=== PATIENT | male | born 1945 | race Caucasian/White ===

== ENCOUNTER → 2016-07-23 | Outpatient (CLI) | payer OTHER ==
--- NOTE | 2016-07-24 06:23 | SPLIT NIGHT TECHNICIAN REPORT ---
[facility] Split Night Polysomnogram - Viscose Cellar Charge Hand Report Study date: 07/23/2016 Referring Physician: Flori Mcnamara PA-C Name: COTY HERMAN Viscose Cellar Charge Hand: Rachna Sullivan [facility]. Date of : 1945 Height: 70 years, Height 5' 7" Sex: Male Weight: 218 lbs Age: 70 Neck Circum: 18.5 in BMI: Medications: 34.14 ANTI-OXIDANT, ASPIRIN 81 MG, ATORVASTATIN 80 MG, ATROVENT, DULERA, FENOFIBRATE 54 MG, GLUCOSAMINE CHONDROITIN, LISINOPRIL-HYDROCHLOROTHIAZIDE 20-12.5 MG, MECLIZINE 25 MG, MONTELUKAST 10 MG, NITROGLYCERIN 0.4 MG, OMEGA 3 FISH OIL, SPIRIVA HANDIHALER 18 MCG, TRAMADOL 50 MG, VENTOLIN HFA Patient History 70 yr-old male here for a baseline study. He has had previous sleep testing. He was found to be positive for [place] but could not tolerate the mask and pressure. He is back with worsening daytime sleepiness and unrefreshing sleep. His [place] scale is 8. The test was started on room air. ETCO2 testing was not utilized during this study. Room 3 Parameters Monitored NPSG: E1-M2, E2-M1, Fp1-M2, Fp2-M1, F3-M2, F4-M2, F4-M1, C3-M2, C4-M2, C4-M1, O1-M2, O2-M2, O2-M1, T3-M2, T4-M1, P3-M2, P4-M1, CHIN1, CHIN2, HR, EKG, Legs, PFLOW, SNOR, FLOW, CFLOW, Tidal Volume, THOR, ABDO, SpO2, PLTH, CPRESS, ETCO2 Wave, ETCO2, pH SLEEP SUMMARY DATA DIAGNOSTIC TREATMENT Lights Out: 10:45:32 PM 1:46:02 AM Lights On: 1:29:32 AM 5:33:02 AM Total Recording Time (TRT): 164.0 min. 227.0 min. Total Sleep Time (TST): 129.5 min. 215.5 min. NREM Time: 129.5 min. 152.0 min. REM Time: 0.0 min. 63.5 min. Sleep Period Time (SPT): 155.0 min. 221.5 min. Sleep Efficiency (SE): 79 % 95 % Sleep Latency: 9.0 min. 5.0 min. Arousal Index: 76.9 13.6 PAP Treatment Levels: 4, 6, 8, 10, 11 * Optimal Pressure(s) SLEEP STAGING DATA DIAGNOSTIC TREATMENT Duration (min) TST % Duration (min) TST % Stage Wake: 34.5 min. -- 11.5 min. -- WASO: 25.5 min. -- 6.0 min. -- NREM: 129.5 min. 100 % 152.0 min. 71 % Stage N1: 97.0 min. 75 % 37.5 min. 17 % Stage N2: 32.5 min. 25 % 114.5 min. 53 % Stage N3: 0.0 min. 0 % 0.0 min. 0 % REM: 0.0 min. 0 % 63.5 min. 29 % POSITIONAL DATA Event Count Index Event Count Index Supine: 0 0.0 5 3.5 Supine NREM: 0 0.0 5 4.9 Supine REM: N/A N/A 0 0 Non-Supine: 176 81.9 36 11.9 Non-Supine NREM: 176 81.9 29 15.1 Non-Supine REM: N/A N/A 7 4.2 AROUSAL SUMMARY DATA: Event Count Index Event Count Index Apnea Arousals: 153 81.1 10 7.0 Hypopnea Arousals: 1 0.5 1 0.3 Snore Arousals: 3 1.4 5 1.4 PLM Arousals: 0 0.0 8 2.2 Non-Specific Arousals: 6 2.8 16 4.5 Total Arousals: 166 76.9 49 13.6 MYOCLONUS (PLM) Event Count Index Event Count Index PLM: 6 2.8 370 103.0 PLM AROUSAL: 0 0.0 8 2.2 PLM W/O AROUSAL 6 2.8 362 100.8 PLM W/RESP EVENT 1 0.0 5 0.0 MYOCLONUS (PLM) Event Count Index Event Count Index LM: 1 18.5 32 8.9 LM AROUSAL: 1 0.5 1 0.3 LM W/O AROUSAL LM W/RESP EVENT LM NON SPECIFIC 21 9.7 384 106.9 HEART RATE DATA DIAGNOSTIC TREATMENT Sleep (bpm): 61 57 REM (bpm): N/A 92 NREM (bpm): 89 92 Tachycardia Count: 0 0 Tachycardia Duration: 0.00 0 Bradycardia Count: 0 0 Bradycardia Duration: 0.00 0 DIAGNOSTIC PORTION TREATMENT PORTION RESPIRATORY DATA Event Count Index Event Count Index AHI: -- 81.5 -- 9.2 RDI: -- 81.5 -- 11 Obstructive Apnea: 175 81.1 22 6.1 Central Apnea: 0 0.0 3 0.8 Mixed Apnea: 0 0.0 0 0.0 Hypopnea: 1 0.5 8 2.2 RERA: 0 0.0 8 2.2 Total Apneas: 175 81.1 25 7.0 RESPIRATORY DATA REM NREM SLEEP REM NREM SLEEP Supine Position: Obstructive Apneas: N/A 0 0 0 0 0 Central Apneas: N/A 0 0 0 3 3 Mixed Apneas: N/A 0 0 0 0 0 Hypopneas: N/A 0 0 0 1 1 RERA N/A 0 0 0 1 1 Total Supine Events: N/A 0 0 0 5 5 Supine AHI: N/A 0.0 0.0 0 4.9 3.5 Supine RDI: N/A 0.0 0.0 0.0 6.1 4.3 REM NREM SLEEP REM NREM SLEEP Non-Supine Position: Obstructive Apneas: N/A 175 175 1 21 22 Central Apneas: N/A 0 0 0 0 0 Mixed Apneas: N/A 0 0 0 0 0 Hypopneas: N/A 1 1 2 5 7 RERA N/A 0 0 4 3 7 Total Supine Events: N/A 176 176 7 29 36 Supine AHI: N/A 81.9 81.9 4.2 15.1 11.9 Supine RDI: N/A 81.9 81.9 9.8 16.9 14.8 OXYGEN DESTAURATION DATA: Event Count Index Event Count Index REM Desaturations: N/A N/A 2 1.9 NREM Desaturations: 174 80.6 22 8.7 SNORE DATA DIAGNOSTIC TREATMENT Snore Time: 12.0 1:51:02 AM Snore TST%: 6 22 Snore Arousal Count: 3 5 Snore Arousal Index: 1.4 1.4 Desaturation Event Summary: Minimum %SpO2 Event Count Mean/Min/Max Duration(sec.) Desaturation Index % Time In Bed > 90 209 27.8 / 10.0 / 60.0 47.9 68.3 86 - 90 54 24.4 / 10.0 / 32.5 32.6 25.9 81 - 85 0 N/A 0.0 5.7 76 - 80 0 N/A 0.0 0.1 71 - 75 0 N/A 0.0 0.0 66 - 70 0 N/A 0.0 0.0 61 - 65 0 N/A 0.0 0.0 56 - 60 0 N/A 0.0 0.0 51 - 55 0 N/A 0.0 0.0 < 50 0 N/A 0.0 0.0 OXYGEN SATURATION DATA DIAGNOSTIC TREATMENT SpO2 Mean Sleep: 89 % 92 % SpO2 Mean REM: N/A % 92 % SpO2 Mean NREM: 89 % 92 % SpO2 Minimum Sleep: 80 % 86 % SpO2 Minimum REM: N/A % 86 % SpO2 Minimum NREM: 80 % 86 % Time Below 90% (TST): 67.6 11.1 Time Below 88% (TST): 41.1 1.0 Total REM NREM Awake <50% 0.0 min. 0.0 min. 0.0 min. 0.0 min. 51 - 60% 0.0 min. 0.0 min. 0.0 min. 0.0 min. 61 - 70% 0.0 min. 0.0 min. 0.0 min. 0.0 min. 71 - 80% 0.2 min. 0.0 min. 0.2 min. 0.0 min. 81 - 90% 121.1 min. 16.2 min. 92.9 min. 12.1 min. 91 - 100% 261.7 min. 47.2 min. 187.9 min. 26.5 min. Average 91 92 91 91 Minimum SpO2 80 86 80 82 Desaturation Event Index 33.3 1.9 41.8 30.0 # Desat. Events below 89% 194 N/A 178 16 Time(%) with Saturation below 89% 15.8 0.5 14.5 0.8 Time(min.) with Saturation below 89% 60.7 2.1 55.4 3.2 Recording Viscose Cellar Charge Hand Comments: Mr. Herman slept in the right, left, and supine positions. Cardiac arrhythmias were noted (please refer to the printouts). PLMs were noted. No bruxism noted. Snoring was noted and scored as a 3 on a scale of 1 through 5. (0=no snoring, 5=snoring loud enough to be heard through a closed door or down the srivastava way). At 1:44 am, he met specific Split-Night criteria during the diagnostic portion of this study. CPAP was initiated at +4 CMH2O and up-titrated to a level of +11 CMH2O, Cflex 3. An AirFit F10 full face mask size medium from [employer] was used during titration. He awoke to use the restroom two times during the night. Mr. Herman stated that he is unsure of how he slept. The final report will be interpreted and signed by a sleep physician. The completed physician report will then be placed in the patient medical record. Therapy Event: Therapy (cm H20) 0 4 6 8 10 11 Total Time at Pressure (min.) 164.0 10.6 9.8 47.6 38.0 121.1 TST at Pressure (min.) 129.5 5.6 9.8 45.6 37.5 117.1 # Periods 1 1 1 1 1 1 Sleep Onset (min.) 9.0 5.0 0.0 0.0 0.0 0.0 REM Onset (min.) N/A N/A N/A 28.6 0.0 58.1 Sleep Efficiency % 79 52 100 95 98 96 Wakefulness (%) 21.0 47.2 0.0 4.2 1.3 3.3 Wakefulness (min.) 34.5 5.0 0.0 2.0 0.5 4.0 NREM 1 (%) 59.1 52.8 96.0 10.5 5.3 12.8 NREM 1 (min.) 97.0 5.6 9.4 5.0 2.0 15.5 NREM 2 (%) 19.8 0.0 4.0 50.7 23.5 67.0 NREM 2 (min.) 32.5 0.0 0.4 24.1 8.9 81.1 NREM 3 (%) 0.0 0.0 0.0 0.0 0.0 0.0 NREM 3 (min.) 0.0 0.0 0.0 0.0 0.0 0.0 REM (%) 0.0 0.0 0.0 34.6 69.9 16.9 REM (min.) 0.0 0.0 0.0 16.5 26.5 20.5 # Arousals 166 9 12 6 6 16 Arousal Index 76.9 96.7 73.4 7.9 9.6 8.2 # Snore 402 24 52 423 326 1,027 Snore Index 186.3 257.8 318.1 557.0 521.9 526.4 AHI 81.5 107.4 67.3 9.2 1.6 2.1 AHI Supine 0.0 N/A N/A N/A N/A 3.5 AHI Non-Supine 81.9 107.4 67.3 9.2 1.6 0.0 NREM AHI 81.5 107.4 67.3 10.3 0.0 2.5 REM AHI N/A N/A N/A 7.3 2.3 0.0 RDI 81.5 107.4 67.3 14.5 4.8 3.1 # Obstructive 175 10 9 2 1 0 # Central Ap 0 0 0 0 0 3 # Mixed 0 0 0 0 0 0 # Hypopneas 1 0 2 5 0 1 RERAS 0 0 0 4 2 2 Total Respiratory Events 176 10 11 11 3 6 Time Below SpO2 89.00% (min.) 53.7 0.4 1.1 1.6 0.7 0.0 Mean NREM SpO2 (%) 89 91 92 92 93 92 Mean REM SpO2 (%) N/A N/A N/A 91 91 92 Mean Sleep SpO2 (%) 89 91 92 92 92 92 Min NREM SpO2 (%) 80 87 86 88 92 89 Min REM SpO2 (%) N/A N/A N/A 86 86 91 Position Supine (min.) 0.5 0.0 0.0 0.0 0.0 69.5 Position Non-supine (min.) 129.0 5.6 9.8 45.6 37.5 47.6 LM Index Sleep 21.3 32.2 6.1 54.0 88.0 154.8 LM Index NREM 21.3 32.2 6.1 39.2 164.5 170.9 LM Index REM N/A N/A N/A 80.2 56.5 79.0 Mean Heart Rate (bpm) 61 57 56 59 59 56 Min Heart Rate (bpm) 52 54 49 38 53 49
--- NOTE | 2016-07-27 19:15 | POLYSOMNOGRAPH REPORT ---
REFERRING PHYSICIAN: Dr. Dani Bermudez. CLINICAL DATA: The patient is a 70-year-old male with a prior history of obstructive sleep apnea. He was tested elsewhere. He did not tolerate nasal CPAP. He has complaints of daytime sleepiness and unrefreshed sleep. He also has episodes of nocturnal dyspnea. His BMI is 34.14. This was a split night study. SLEEP ARCHITECTURE: During the diagnostic portion of the study, the sleep period time was 155 minutes and the total sleep time was 129.5 minutes. The sleep efficiency was 79%. The sleep latency was 9 minutes. During the treatment portion of the study, the patient was treated with nasal CPAP. The sleep period time was 221.5 minutes and the total sleep time was 215.5 minutes. The sleep efficiency was 95%. The sleep latency was 5 minutes. During the diagnostic portion of the study, sleep consisted of stage N1 75%, stage N2 25%, stage N3 0%, REM sleep 0%. During the treatment portion of the study, sleep consisted of stage N1 17%, stage N2 53%, stage N3 0%, and stage REM 29%. AROUSAL DATA: During the diagnostic portion of the study, the patient had a total of 166 arousals including 153 apnea arousals, 1 hypopnea arousal, 3 snoring arousals, and 6 nonspecific arousals. The arousal index was severely elevated at 76.9. During the therapeutic portion of the study, the patient had 49 arousals including 10 apnea arousals, 1 hypopnea arousal, 5 snoring arousals, 8 PLM arousals, and 16 nonspecific arousals. The arousal index was 13.6. PERIODIC LIMB MOVEMENT DATA: During the diagnostic portion of the study, the patient had a total of 6 periodic limb movements for an index of 2.8. There were zero arousals. During the therapeutic portion of the study, he had 362 periodic limb movements for an index of 100.8. There were 8 arousals for a PLM arousal index of 2.2. EKG: The underlying cardiac rhythm was normal sinus. There were frequent extrasystoles including both, PACs and PVCs. The cardiac rates averaged 60 beats per minute. RESPIRATORY DATA: During the diagnostic portion of the study, the patient had a total of 176 respiratory events including 175 obstructive apneas and 1 hypopnea. Hypopneas were scored according to the 4% desaturation rule. The apnea hypopnea index was severely elevated at 81.5. During the therapeutic portion of the study, the patient's nocturnal events were treated with nasal CPAP, which was titrated to a final pressure of 11 cm. He had a total of 33 respiratory events including 22 obstructive apneas, 3 central apneas, and 8 hypopneas. The apnea hypopnea index was 9.2. At the final pressure of 11 cm, the patient had an apnea hypopnea index of 3.1. He was at that pressure for a total of 121.1 minutes. OXIMETRY DATA: During the diagnostic portion of the study, the mean saturation was 89% and the minimum saturation was 80%. There was 41.1 minutes with saturations less than 88%. During the treatment portion of the study, the mean saturation was 92% with a minimum saturation of 86%. There was only 1 minute with saturations less than 88%. OVERNIGHT STOCKER COMMENTS: Mr. Colvin slept in the right, left, and supine positions. No bruxism noted. Snoring was noted and scored as a 3 on a scale of 1 through 5. At 1:44 a.m., he met specific split night criteria during the diagnostic portion of the study. CPAP was initiated at 4 cm of water and up titrated to a level of 11 cm utilizing C-Flex 3. He awoke to use the restroom 2 times during the night. IMPRESSIONS: 1. Obstructive sleep [id number] with nasal CPAP at 11 cm. 2. Cardiac arrhythmia-premature ventricular contractions and premature atrial contractions. COMMENTS: A split study was done. The patient was found to have severe sleep apnea. He was then started on nasal CPAP with an excellent response. His sleep became much more consolidated. He had some REM rebound. Oxygenation improved. At the final pressure, he had very few respiratory events. The patient seemed to tolerate CPAP well. There was a marked increase in the frequency of periodic limb movements. This is not unexpected with resolution of sleep disordered breathing. RECOMMENDATIONS: 1. It is advised that the patient be started on nasal CPAP at 11 cm. C-Flex should be set at 3. 2. It is suggested that he be ordered an AirFit F10 full facemask, size medium. 3. The patient has an elevated body mass index of 34.14. It is advised that he initiate a weight reduction program. 4. If possible, the patient should avoid sleeping in the supine position. 5. The patient needs followup between day 31 and day 90 after he receives his CPAP device.
== END | disposition home or self-care (01) ==
LOC: C.NEUR 21:00
PROVIDERS: ATTEND Physician Assistant Medical
DX: G47.33 Obstructive sleep apnea (adult) (pediatric) (principal)